=== PATIENT | female | born 1955 | race Caucasian/White ===

== ENCOUNTER → 2017-06-03 | Outpatient (CLI) | payer BC, OTHER ==
[~2017-06-03] MED LIST: ALBU17AE23 IH; ALLP100T PO; BUDE6HFA IH; CYCL10TA9 PO; DCS100C PO; DIPH1TAB45 PO; ESTR1TAB24 PO; ETD200C PO; FLUT1DIS26 IH; HYDR-91 PO; LEVO750T6 PO; MELO-195 PO; MMT17NA IH; MNTL10T PO; NF-PIME1%; NITR-33 PO; OMEP20CA12 PO; ONDAN4ODT PO; ORPH100T PO; PRD10T PO; PRM25T PO; SULF-109 PO
--- NOTE | 2017-06-03 12:58 | Diagnostic Imaging Report ---
PROCEDURE: CT abdomen and pelvis without contrast. TECHNIQUE: Multiple contiguous axial images were obtained through the abdomen and pelvis without the use of intravenous contrast. INDICATION: Abdominal pain. COMPARISON: 03/28/14. FINDINGS: The lung bases appear clear. The liver, the spleen, the adrenals, and the pancreas appear unremarkable. There are calcified gallstones seen without evidence of cholecystitis. The kidneys demonstrate no hydronephrosis. There is a 4 mm lower pole right kidney stone. A 3 mm stone in the upper pole of the right kidney is also seen. There is a nonobstructive 2 mm stone at the lower pole of the left kidney. No ureteric stone is seen. No hydronephrosis. There is suggestion of prior hysterectomy and there is evidence of pelvic floor weakness and descent of the soft tissue structures into the perineum. There is suggestion of prior hysterectomy and surgical sutures along the adnexa are also seen. There is no bowel obstruction. The appendix appears normal. Moderate amount of fecal material is seen in the colon. The abdominal aorta is normal in caliber. No para-aortic significantly enlarged lymph node is seen. The osseous structures demonstrate prominent right convexity scoliosis of the lumbar spine and advanced degenerative changes. Advanced degenerative changes at the hip joint seen. IMPRESSION: 1. Bilateral nonobstructive kidney stones. 2. Cholelithiasis. 3. Pelvic floor weakness resulting in descent of the soft tissue structures of the pelvis towards the perineum. Dictated by: Dictated on workstation # [id number]
== END ==
LOC: RAD 07:20
PROVIDERS: ATTEND Urology
DX: Z87.442 Personal history of urinary calculi (principal)
CPT/HCPCS: 74176

== ENCOUNTER → 2017-11-25 | Outpatient (CLI) | payer OTHER ==
--- NOTE | 2017-11-25 09:29 | Diagnostic Imaging Report ---
PROCEDURE: MRI right joint lower extremity without contrast. TECHNIQUE: Multiplanar, multisequence non contrast-enhanced MRI of the right lower extremity was accomplished. INDICATION: Right knee pain, medial and inferior. Swelling and popping in the right knee. COMPARISON: None. FINDINGS: There is a large right knee joint effusion. A large osteochondral defect is seen in the medial femoral condyle with underlying bone marrow edema. Bone marrow edema and subcortical cystlike changes are seen at the medial tibial plateau. Small subcortical cystlike changes are seen at the median ridge of the patella as well. There is a large full-thickness defect of the articular cartilage overlying the medial facet and the median ridge of the patella. The medial compartment demonstrates severe cartilage loss, with the aforementioned large osteochondral defect which measures 1.3 cm mediolateral and 2.1 cm AP. There is also marked heterogeneity, irregularity, and cartilage loss throughout the medial tibial plateau. The lateral compartment demonstrates heterogeneity and surface irregularity, with no large full-thickness defects. There is a complete radial tear of the posterior horn of the medial meniscus, with additional complex tearing extending into the body. The medial meniscus is partially extruded. There is markedly increased signal of the lateral meniscus particularly at the posterior horn, with complex tearing near the root. The medial collateral ligament demonstrates mild adjacent edema, with mildly increased signal near the femoral attachment. Increased signal is also seen in the region of the pes anserine. The lateral collateral ligamentous complex appears intact. The medial and lateral retinacula are intact. The extensor mechanism is intact. Increased signal along the patellar tendon is found to be due to artifact. There is mild anterior subcutaneous edema. There is mild atrophy of the semimembranosus muscle with tendinopathy and partial-thickness tearing of the tendon near the tibial insertion. IMPRESSION: 1. Large osteochondral defect at the right medial femoral condyle, with additional tricompartmental cartilage loss, particularly at the medial and patellofemoral compartments. 2. Large right knee joint effusion. 3. Complete radial tear of the posterior horn of the medial meniscus with complex tearing extending into the body. Suspected complex tear of the lateral meniscus near the posterior root. 4. Tendinopathy and partial thickness tearing of the distal semimembranosus tendon, with atrophy of the musculature. 5. Increased signal in the region of the pes anserine, may represent bursitis. 6. Low-grade sprain of the medial collateral ligament. Dictated by: Dictated on workstation # [id number]
== END ==
LOC: RAD 08:05
DX: S83.241A Other tear of medial meniscus, current injury, right knee, initial encounter (principal); S86.811A Strain of other muscle(s) and tendon(s) at lower leg level, right leg, initial encounter; S83.411A Sprain of medial collateral ligament of right knee, initial encounter; M21.961 Unspecified acquired deformity of right lower leg; M94.8X8 Other specified disorders of cartilage, other site; M67.863 Other specified disorders of tendon, right knee; M62.58 Muscle wasting and atrophy, not elsewhere classified, other site
CPT/HCPCS: 73721

== ENCOUNTER → 2019-08-31 | Outpatient (CLI) | payer OTHER ==
--- NOTE | 2019-08-31 12:40 | Diagnostic Imaging Report ---
INDICATION: Left knee pain AP, oblique, and lateral views of the left knee are obtained. No fracture or acute bony abnormality is seen. There is chondrocalcinosis. There is patellofemoral joint space narrowing with osteophyte formation. There is minimal medial joint space narrowing. IMPRESSION: Degenerative findings of left knee with underlying chondrocalcinosis suggesting calcium pyrophosphate deposition disease. There is no acute bony abnormality. Dictated by: Dictated on workstation # [id number]
== END ==
LOC: RAD 11:41
DX: M17.0 Bilateral primary osteoarthritis of knee (principal); M11.262 Other chondrocalcinosis, left knee
CPT/HCPCS: 73562

== ENCOUNTER → 2019-09-21 | Outpatient (CLI) | payer OTHER ==
--- NOTE | 2019-09-21 09:51 | Diagnostic Imaging Report ---
PROCEDURE: MRI left joint lower extremity without contrast. TECHNIQUE: Multiplanar, multisequence non contrast-enhanced MRI of the left lower extremity was accomplished. INDICATION: Chronic left knee pain. No known injury. COMPARISON: Radiographs from 08/31/2019 FINDINGS: There is a subchondral insufficiency fracture at the medial femoral condyle with moderate bone marrow edema seen throughout the medial femoral condyle. Mild bone marrow edema is seen in the medial tibia. There is a small left knee joint effusion. The articular cartilage in the patellofemoral compartment demonstrates small full-thickness cartilage loss measuring 6 mm at the median ridge and medial facet. There is moderate to marked thinning of articular cartilage in the medial compartment. No full-thickness defect is seen in the lateral compartment. The medial meniscus demonstrates intrasubstance degeneration, and appears to have a small radial tear at the posterior root. The lateral meniscus demonstrates partial tearing at the free edge and undersurface of the posterior horn. The anterior and posterior cruciate ligaments are intact. The medial collateral ligament demonstrates surrounding edema, but appears intact. The lateral collateral ligamentous complex is intact. The extensor mechanism appears intact. The medial and lateral retinacula are intact. Otherwise, the soft tissues about the knee are unremarkable. IMPRESSION: 1. Subchondral insufficiency fracture of the left medial femoral condyle with associated bone marrow edema. 2. Small tears at the posterior horns of the medial and lateral menisci. 3. Moderate cartilage loss in the left knee. 4. Grade 1 sprain of the medial collateral ligament. 5. Small left knee joint effusion. Dictated by: Dictated on workstation # [id number]
== END ==
LOC: RAD 08:43
DX: M84.352A Stress fracture, left femur, initial encounter for fracture (principal); M23.252 Derangement of posterior horn of lateral meniscus due to old tear or injury, left knee; M23.222 Derangement of posterior horn of medial meniscus due to old tear or injury, left knee; M94.8X8 Other specified disorders of cartilage, other site
CPT/HCPCS: 73721

== ENCOUNTER → 2020-10-04 | Outpatient (CLI) | payer OTHER ==
--- NOTE | 2020-10-04 13:03 | Diagnostic Imaging Report ---
INDICATION: Knee pain. COMPARISON: 11/25/2017 TECHNIQUE: Three radiographs of the right knee dated 10/04/2020. FINDINGS: Interval placement of a right total knee arthroplasty. No evidence of hardware complication. No acute fracture. No dislocation. No destructive osseous process. No significant knee joint effusion. No suspicious radiopaque foreign body. IMPRESSION: Interval placement of a right total knee arthroplasty without evidence of hardware complication or acute osseous abnormality. Dictated by: Dictated on workstation # [id number]
--- NOTE | 2020-10-04 14:01 | Diagnostic Imaging Report ---
INDICATION: Right hip pain. TIME OF EXAM: 12:18 p.m. EXAMINATION: AP view of the pelvis and two views of right hip were obtained. FINDINGS: Femoroacetabular alignment is normal bilaterally. There is superior joint space narrowing involving bilateral hips consistent with degenerative joint disease. Right hip does show some spurring at the femoral head neck junction. No fractures are seen. The rami appear to be intact. SI joints and symphysis are not widened. IMPRESSION: Bilateral hip joint degenerative changes. No acute bony abnormality is detected. Dictated by: Dictated on workstation # [id number]
== END ==
LOC: RAD 11:32
DX: M16.0 Bilateral primary osteoarthritis of hip (principal); M25.561 Pain in right knee; Z96.651 Presence of right artificial knee joint
CPT/HCPCS: 73562

== ENCOUNTER → 2021-09-15 | Outpatient (CLI) | payer OTHER ==
--- NOTE | 2021-09-15 14:32 | Diagnostic Imaging Report ---
INDICATION: Right wrist pain. FINDINGS: There is a transverse fracture of the metaphysis of the radius with moderate ventral angulation and offset with the shaft by approximately 1 cm. The carpal bones show advanced arthritic disease. There is possible osteonecrosis of the lunate and scaphoid. I could not exclude a fracture through the scaphoid. There is chondrocalcinosis noted within the triangular fibrocartilage. IMPRESSION: 1. There is a transverse fracture of the metaphysis of the radius with an approximately 1 cm offset and moderate volar angulation. 2. I could not exclude a scaphoid fracture on this exam. If there is concern of the scaphoid or lunate, I would consider a CT scan of the wrist. Dictated by: Dictated on workstation # [id number]
== END ==
LOC: RAD
DX: S52.321A Displaced transverse fracture of shaft of right radius, initial encounter for closed fracture (principal); X58.XXXA Exposure to other specified factors, initial encounter
CPT/HCPCS: 73110

== ENCOUNTER 2021-09-23 05:35 | Outpatient (CLI) | payer OTHER ==
[~2021-09-23] VITALS: Ht 170.2 cm; Wt 72.6 kg
[2021-09-23] MEDS ORDERED: ATOR10TA66 PO (08:55)
[2021-09-23] MEDS ORDERED: RT-ALBUINH INH (08:55)
[2021-09-23] MEDS ORDERED: MELO10CA3 PO (08:55)
[2021-09-23] MEDS ORDERED: FLUT1DIS26 IH (08:55)
[2021-09-23] MEDS ORDERED: MOME17SP4 NS (08:55)
[2021-09-23] MEDS ORDERED: ALLO100T PO (08:55)
[2021-09-23] MEDS ORDERED: HYDR5CRY MC (08:55)
[2021-09-23] MEDS ORDERED: MONT10TA21 PO (08:55)
[2021-09-23] MEDS ORDERED: OMEP-401 PO (08:55)
[2021-09-24] MEDS ORDERED: OXYC1TAB87 PO (07:23)
== END 2021-09-23 09:51 | disposition home or self-care (01) ==
LOC: PREOP 05:35
PROVIDERS: ATTEND Orthopaedic Surgery
DX: Z01.818 Encounter for other preprocedural examination (principal)

== ENCOUNTER 2021-09-24 08:00 | Day surgery (SDC) | payer OTHER ==
[~2021-09-24] VITALS: Ht 170.2 cm; Wt 72.6 kg
[2021-09-24] VITALS (12 sets, daily range): BP systolic 121–171; BP diastolic 57–91
[~2021-09-24 08:00] MED LIST changes: +ALLO100T PO; +ATOR10TA66 PO; +HYDR5CRY MC; +HYDROcodone/APAP 7.5 MG/325 MG (LORTAB, LORCET PLUS) TABLET PO PRN; +MELO10CA3 PO; +MOME17SP4 NS; +MONT10TA21 PO; +OMEP-401 PO; +OXYC1TAB87 PO; +RT-ALBUINH INH; +oxyCODONE/APAP 5/325MG (PERCOCET 5) TABLET PO PRN
[2021-09-24] MEDS ORDERED: ceFAZolin 2 GM IV Premixed 50 ML ONE (08:34)
[2021-09-24] MEDS: LACTATED RINGERS 1,000 ML IV PRN ×2 (08:50→10:53)
--- NOTE | 2021-09-24 09:23 | Progress Note-Pre Operative ---
Pre-Operative Progress Note H&P Reviewed The H&P was reviewed, patient examined and no changes noted. Date Seen by Provider: Sep 24, 2021 Time Seen by Provider: 09:10 Date H&P Reviewed: Sep 24, 2021 Time H&P Reviewed: 07:11 Pre-Operative Diagnosis: clsoed, displaced right distal radius fracture KEATON YU MD Sep 24, 2021 09:22
[2021-09-24] MEDS ORDERED: fentaNYL INJ 100 MCG/2 ML AMP ONE (09:24)
[2021-09-24] MEDS ORDERED: ONDANSETRON 4 MG/2 ML (SDV) Z0FRAN ONE (09:24)
[2021-09-24] MEDS ORDERED: proPOfol 200 MG/20 ML (DIPRIVAN) VIAL IV ONE (09:24)
[2021-09-24] MEDS ORDERED: LIDOCAINE PF 2% 5 ML (XYLOCAINE) VIAL ONE (09:24)
[2021-09-24] MEDS ORDERED: SEVOFLURANE (ULTANE) 15 ML INHAL SOLN ONE ×2 (09:24→11:16)
[2021-09-24] MEDS ORDERED: BUPIVACAINE 0.5% 30 ML (SENSORCAINE) VIAL ONE (09:24)
--- NOTE | 2021-09-24 09:24 | Progress Note-Post Operative ---
Post-Operative Progess Note Surgeon (s)/Manual Tester (s) Surgeon KEATON YU MD Manual Tester: Jacob Grewal Pre-Operative Diagnosis clsoed, displaced right distal radius fracture Post-Operative Diagnosis clsoed, displaced right distal radius fracture (two part) Procedure & Operative Findings Date of Procedure 09/24/21 Procedure Performed/Findings ORIF right distal radius Anesthesia Type GETA Estimated Blood Loss Estimated blood loss (mL): minimal Specimens/Packing Specimens Removed none Packing: none KEATON YU MD Sep 24, 2021 09:24
[2021-09-24] MEDS ORDERED: MIDAZOLAM 2 MG/2 ML (VERSED) VIAL ONE (09:25)
[2021-09-24] MEDS ORDERED: HYDROmorphone 2 MG/ML VIAL (DILAUDID) ONE (10:26)
--- NOTE | 2021-09-24 11:42 | Diagnostic Imaging Report ---
INDICATION: Fluoroscopy for right wrist ORIF. Fluoroscopy was provided in the OR during right wrist ORIF. 26 seconds of fluoroscopic time was utilized. 2 images were obtained demonstrating a volar plate and screws transfixing distal radius fracture. Alignment is anatomic. IMPRESSION: Fluoroscopy for right wrist ORIF. Dictated by: Dictated on workstation # [id number]
[2021-09-24] MEDS ORDERED: morphine INJ 10 MG/ML 1ML (SYR OR VIAL) IVP ONE (11:45)
[2021-09-24] MEDS ORDERED: ONDANSETRON 4 MG/2 ML (SDV) Z0FRAN IVP PRN (11:45)
--- NOTE | 2021-09-24 15:06 | Anesthesia-General Post-Op ---
General Patient Condition Mental Status/LOC: Same as Preop Cardiovascular: Satisfactory Nausea/Vomiting: Absent Respiratory: Satisfactory Pain: Controlled Complications: Absent Post Op Complications Complications None Follow Up Care/Instructions Patient Instructions None needed. Anesthesia/Patient Condition Patient Condition Patient was doing well after the procedure, no complaints, stable vital signs, no apparent adverse anesthesia problems. MONICA VILLATORO DO Sep 24, 2021 15:06
--- NOTE | 2021-09-24 16:03 | OPERATIVE REPORT ---
DATE OF SERVICE: 09/24/2021 PREOPERATIVE DIAGNOSIS: Displaced right distal radius fracture. POSTOPERATIVE DIAGNOSIS: Displaced right distal radius fracture. PROCEDURE: Open reduction and internal fixation of right distal radius. SURGEON: Rolly Yu MD ENGINEER OF SYSTEM DEVELOPMENT: Jacob Mills, who assisted throughout the procedure and closed the incision. ANESTHESIA: General endotracheal by Dr. Shaffer. TOURNIQUET TIME: 44 minutes at 250 mmHg. ESTIMATED BLOOD LOSS: Minimal. DRAINS: None. COMPLICATIONS: None. POSTOPERATIVE PLAN: Splint wear for 4 weeks. The patient was transferred to the recovery room awake and stable condition. STATEMENT OF MEDICAL NECESSITY: The patient is a 65-year-old female with significant carpal arthrosis, who fell and sustained a right distal radius fracture. There was volar displacement and angulation. The patient was counseled regarding treatment options and elected to proceed with surgical intervention as she reports this is her "good wrist." DESCRIPTION OF PROCEDURE: After risks and benefits of procedure were discussed and questions were answered, an informed consent was signed and placed on chart. The operative site was confirmed in the preoperative holding area initialed by the surgeon. The patient was then transferred to the operating room after adequate levels of general endotracheal anesthetic were obtained, a timeout was called, confirming the operative site. The right upper extremity was prepped and draped in the usual sterile fashion with arm elevated, tourniquet was inflated to 250 mmHg. An incision was made over the flexor carpi radialis. The flexor carpi radialis sheath was opened and the flexor carpi radialis was retracted ulnarly. The pronator quadratus was elevated off of the distal radius and subperiosteal Milton retractors were placed. The fracture was reduced anatomically. This was a 2 part fracture. Anatomic alignment was obtained and a Synthes distal radius plate was placed with 4 locking screws placed distally and two locking screws placed in the shaft. Her bone quality was extremely poor. The fracture was stable after fixation and the plate construct was stable. Fluoroscopy in the AP, lateral and oblique planes revealed anatomic reduction of the fracture with well-placed hardware. The wound was copiously irrigated. The tourniquet was deflated. Pressure was used for hemostasis. Wound was further irrigated, 3-0 Vicryl was used to reapproximate subcutaneous tissue, jaycob used on the skin. A soft dressing and splint were applied, and the patient was transferred to the recovery room awake and in stable condition. Job ID: [id number] DocumentID: [id number] Dictated Date: 09/24/2021 11:21:57 Card Maker Date: 09/24/2021 16:02:32 Dictated By: ROLLY YU MD
--- NOTE | 2021-10-06 11:18 | HISTORY AND PHYSICAL ---
ADMISSION HISTORY AND PHYSICAL This will be for outpatient surgery on 09/24/2020 for internal fixation of right distal radius. HISTORY: The patient is a 65-year-old right hand dominant female who fell almost two weeks ago on her outstretched right upper extremity. Ultimately, she obtained radiographs, which revealed a displaced right distal radius fracture. The patient has known severe carpal arthrosis. She has undergone procedures for tendon injuries to the hand as well. She reports it is "her good hand." Radiographs reveal a volar displacement of an intraarticular four-part distal radius fracture. Due to the displaced nature of the fracture, the patient has elected to proceed with surgical intervention. She understands this will not alleviate her arthritic symptoms in her wrist and she could require procedures in the future. REVIEW OF SYSTEMS: No chest pain, no shortness of breath, no dysuria. PAST MEDICAL HISTORY: Psoriasis, reflux, asthma, hypertension, allergic rhinitis, arthritis, nephrolithiasis, hepatitis C, irritable bowel syndrome, UTI, cellulitis, sciatica, urinary incontinence. PAST SURGICAL HISTORY: Right total knee arthroplasty, bilateral carpal tunnel with ulnar nerve transposition right foot and left foot, hysterectomy, bladder suspension, cataracts T10 to sacral fusion. I and D of lumbar incision in 01/2021. SOCIAL HISTORY: The patient denies alcohol and tobacco use. She is retired. FAMILY HISTORY: Noncontributory. MEDICATIONS: Calcium, omeprazole, Mucinex, MiraLax, folic acid, allopurinol, pteridine, aspirin, albuterol, potassium, orphenadrine, rosuvastatin, lisinopril, hydrochlorothiazide, hydrocodone, tramadol. ALLERGIES: No known drug allergies. PHYSICAL EXAMINATION: GENERAL: The patient is well-developed, well-nourished, in no acute distress. HEENT: Normocephalic, atraumatic. Pupils are equal, round and reactive to light. Oropharynx is clear. NECK: Supple, with no lymphadenopathy. LUNGS: Clear to auscultation bilaterally. HEART: Regular rate and rhythm. ABDOMEN: Soft, nontender, nondistended. EXTREMITIES: The right wrist demonstrates a volar deformity. 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 Sensation is at her baseline distally. There are no skin lesions noted. RADIOGRAPHS: Reveal displaced intra-articular right distal radius fracture. IMPRESSION: Right displaced intraarticular distal radius fracture. PLAN: Open reduction and internal fixation of the right distal radius. Risks, benefits, options, ramifications and recovery were discussed at length with the patient. She understands and wishes to proceed. Job ID: [id number] DocumentID: [id number] Dictated Date: 09/22/2021 14:21:46 Tile Erector Date: 09/22/2021 15:00:55 Dictated By: KEATON YU MD <Dictated by KEATON YU MD> <Electronically signed by KEATON YU MD> 09/23/21 [facility]
== END 2021-09-24 13:40 | disposition home or self-care (01) ==
LOC: SDC 08:00
PROVIDERS: ATTEND Orthopaedic Surgery
DX: S52.501A Unspecified fracture of the lower end of right radius, initial encounter for closed fracture (principal); W19.XXXA Unspecified fall, initial encounter
CPT/HCPCS: 25607; 76000; 87081; C1713 ×8